=== PATIENT | female | born 1975 | race Caucasian/White ===

== ENCOUNTER → 2016-11-07 | Outpatient (CLI) | payer BC ==
[~2016-11-07] MED LIST: DMD20 PO; LABETOLOL PO; PRENTAB26 PO
[2016-11-07 12:19] LABS: BASO % 0.5 %; BASO ABS # 0.03 K/uL (0-0.2); COMPLETE YES; EOS % 0.9 %; HEMATOCRIT 37.8 % (37-47); IG% 0.3 %; LYMPH % 33.1 %; LYMPH ABS # 2.15 K/uL (1.2-3.4); MEAN CELL VOLUME 90.2 fL (80-100); MEAN CORPUSCULAR HEMOGLOBIN 30.5 pg (25-34); MEAN CORPUSCULAR HGB CONC 33.9 g/dl (32-36); MEAN PLATELET VOLUME 10.2 fL (7.4-10.4); MONO % 5.5 %; NEUT % 59.7 %; PLATELET COUNT 239 K/uL (130-400); RED BLOOD COUNT 4.19 M/uL (4.2-5.4)
== END | disposition home or self-care (01) ==
LOC: C.LAB1850 10:58
PROVIDERS: ATTEND Family Medicine
DX: M79.671 Pain in right foot (principal)